=== PATIENT | male | born 1965 | race Caucasian/White ===

== ENCOUNTER → 2016-04-27 10:19 | Outpatient (CLI) | payer OTHER ==
[2016-03-11 00:50] VITALS: BMI 26.1
[~2016-04-27 10:19] MED LIST: CENTRUM COMPLE1 EACH PO; FLUTICASONE PRO16 GM NASAL; LEVAQUIN250 MG PO; LIPITOR20 MG PO; MEDROL DOSE PACK4 MG PO; PRILOSEC OTC PO; PRINIVIL20 MG PO; ZYRTEC10 MG PO
== END | disposition home or self-care (01) ==
LOC: D.US 10:19
DX: E04.1 Nontoxic single thyroid nodule (principal)

== ENCOUNTER 2017-03-25 07:23 | Day surgery (SDC) | payer OTHER ==
[~2017-03-25] VITALS: Ht 177.8 cm; Wt 102.3 kg
[2017-03-25 08:08] LABS: EOSINOPHILS 5.4 % (0-7); HEMATOCRIT 44.9 % (42.0-54.0); HEMOGLOBIN 15.4 g/dL (13.5-17.5); IMMATURE GRANULOCYTES 0.8 % (0-5); LYMPHOCYTES 33.8 % (15-50); MCH 31.3 pg (26.0-34.0); MCHC 34.3 g/dL (31.0-37.0); MCV 91.3 fL (80.0-100.0); MEAN PLATELET VOLUME 10.5 fL (7.4-10.4); MONOCYTES 13.2 % (2-11); NEUTROPHILS 45.8 % (40-80); PLATELET COUNT 222 10x3/uL (130-400); RBC 4.92 10x6/uL (4.20-6.10); RDW 12.7 % (11.5-14.5); WBC 4.9 10x3/uL (4.8-10.8)
[2017-03-25 08:16] LABS: APTT 28.8 SECONDS (22.8-39.4); INR 0.91 (0.85-1.17); PROTIME 11.9 SECONDS (11.6-15.0)
[2017-03-25] MEDS ORDERED: NORVASC2.5 MG PO (08:36)
[2017-03-25] MEDS ORDERED: CIALIS5 MG PO (08:36)
[2017-03-25 08:44] VITALS: BP 131/99; BMI 31.6
[2017-03-25 09:46] LABS: CALC OSMOLALITY 266 mosm/kg (275-300); CALCIUM 8.8 mg/dL (8.5-10.1); CHLORIDE - SERUM 100 mmol/L (98-107); GLUCOSE 127 mg/dL (74-106); POTASSIUM - SERUM 4.3 mmol/L (3.5-5.1); SODIUM 132 mmol/L (136-145); UREA NITROGEN 13 mg/dL (7-18); eGFR NON AFRICAN AMERICAN 83 mL/min (90-120)
--- NOTE | 2017-03-25 15:32 | NUR ---
FRANCISCO RELIEVED DOMINIQUE. DINH RELIEVED FRANCISCO AT 8937
--- NOTE | 2017-03-25 16:56 | HP ---
PATIENT: GAY ROWLEY MEDICAL RECORD: [id number] ACCOUNT: [id number] LOCATION:D.MS [facility]ino[address]osa2203 : 63 ADMISSION DATE: 03/25/17 HISTORY AND PHYSICAL EXAMINATION HISTORY OF PRESENT ILLNESS: Mr. Rowley is a 51-year-old male with a right thyroid nodule that has been identified previously, but he was undergoing treatment for prostate cancer at that time, also that is being addressed now. He is being admitted for right thyroid lobectomy and possible total thyroidectomy. PAST MEDICAL HISTORY: Includes hypertension and prostate cancer. PAST SURGICAL HISTORY: Includes lung excision for benign nodule and prostatectomy in 2017. CURRENT MEDICATIONS: Tadalafil, atorvastatin, amlodipine, Prilosec, and Zyrtec. ALLERGIES: MORPHINE, BACTRIM, AND NITROFURANTOIN. PHYSICAL EXAMINATION: GENERAL: He is healthy appearing. FACE: Normal, symmetric, no lesions. EYES: Sclerae and conjunctivae are normal. EARS: Canals and TMs are normal. NOSE: No masses, polyps, or drainage. ORAL CAVITY AND OROPHARYNX: Tongue protrudes in midline. Palate and pharynx is normal. NECK: He has a palpable right thyroid nodule. CHEST: Clear. CARDIOVASCULAR: Regular rate and rhythm, no murmur. EXTREMITIES: Normal. IMPRESSION: Right dominant thyroid nodule. PLAN: Right thyroid lobectomy, possible total thyroidectomy. TRANSINT:[id number] Voice Confirmation ID: [id number] DOCUMENT ID: [id number] KINGA MTZ MD at 1656 CC: [id number] DICTATION DATE: 03/21/17 151 CARRY ALL DRIVER: 03/21/17 1602 ADM IN [facility] [id number] [place] [id number]
--- NOTE | 2017-03-25 17:08 | NUR ---
CONSULTED DR OWEN REGARDING ELEVATED BLOOD PRESSURE. GIVEN VERBAL ORDERS TO GIVE LABETALOL 10MG IN PACU NOW. WILL CONTINUE TO MONITOR. MAY REPEAT X1 IN PACU.
--- NOTE | 2017-03-25 17:46 | NUR ---
PT ADMITTED TO FLOOR FROM RECOVERY ROOM. ASSESSMENT COMPLETE AT THIS TIME.
[2017-03-25 17:47] VITALS: BP 150/96
[2017-03-25 17:52] VITALS: Ht 177.8 cm; Wt 102.3 kg
[2017-03-25 20:00] VITALS: BP 137/54
--- NOTE | 2017-03-25 21:40 | NUR ---
PATIENT REQUESTING PAIN MEDICATION. NOT TIME PER Q6HP. PAGED .
--- NOTE | 2017-03-26 02:13 | NUR ---
PATIENT DENIES WEARING OXYGEN AT HOME. PRE-OP V/S PER FLOWSHEET SAY OXYGEN SATURATION 94%. PATIENT IS SITTING UP IN BED WATCHING TV. HE IS REQUESTING AN ICE CREAM. HE IS ALERT AND ORIENTED. CHECKED OXYGEN SATURATION 92-94% ON 2L/MIN. TURNED OXYGEN OFF. WILL CONTINUE TO MONITOR. TOLD PATIENT TO NOTIFY ME IF HE STARTS TO FEEL SHORT OF BREATH. HE VERBALIZED UNDERSTANDING AND AGREED. BROUGHT HIM AN ICE CREAM.
--- NOTE | 2017-03-26 02:20 | NUR ---
OXYGEN SATURATION 89-92% ON ROOM AIR. PUT OXYGEN BACK ON PATIENT AT 1L/MIN. TOLD PATIENT TO NOTIFY ME IF HE STARTS FEELING SHORT OF BREATH. HE VERBALIZED UNDERSTANDING AND AGREED.
[2017-03-26 04:00] VITALS: BP 134/86
[2017-03-26 07:10] VITALS: BP 127/75
--- NOTE | 2017-03-26 08:32 | OP ---
PATIENT NAME: GAY ROWLEY MEDICAL RECORD: [id number] :61 LOCATION:D.MS Hinojosa2203 ADMISSION DATE:03/25/17 SURGEON: KINGA MTZ MD DATE OF OPERATION: 03/25/2017 PREOPERATIVE DIAGNOSIS: Right thyroid nodule. POSTOPERATIVE DIAGNOSIS: Right thyroid nodule. PROCEDURE: Right thyroid lobectomy. SURGEON: Kinga Mtz MD ANESTHESIA: General orotracheal. BLOOD LOSS: Less than 20 cc. SPECIMENS: Right thyroid lobe. Frozen section diagnosis benign thyroid adenoma, no evidence of malignancy. DRAINS: A single JUSTIN drain through a separate stab incision inferior to the wound. COMPLICATIONS: None. DISPOSITION: Recovery stable. DESCRIPTION OF PROCEDURE: He was brought to the operating room and placed in supine position, sedated and intubated by anesthesia. The eyes were taped. He was positioned for thyroidectomy. The skin was cleaned with alcohol and injected with 1 cc of 1% lidocaine with 1:100,000 epinephrine for the incision. He was prepped and draped in usual sterile fashion. A horizontal skin incision was made with a 15 blade. This was taken down through the platysma. The fascia was exposed, flaps were dissected inferiorly and superiorly and 4 separate 2-0 silk stick ties were used for retraction sutures. The strap muscles were divided in the midline down to and exposing the thyroid. The thyroid was palpated, on the left side was normal. On the right side had a thyroid nodule, fairly lateral and posterior. Army-Pinch retractors were used to expose the gland, was dissected out inferiorly, laterally very large thyroid vein was taken down, generally had very large venous vasculature to the thyroid bed. The dissected inferiorly first, some small vessels were clipped with a clip application operations engineer and the gland was dissected out. The recurrent laryngeal nerve was identified and followed up superiorly just a little bit, but then the superior lobe was dissected out bluntly and then with tonsil clamp and clip application operations engineer and bipolar cautery were used to control cautery until a right angle clamp was used to tie off the vasculature with a 2-0 silk tie and once the superior lobe was pulled down, then the gland could be rotated medially. The nodule was the most posterior portion of the thyroid gland. Parathyroid gland was dissected off superiorly and dissected away from the gland. The gland was rotated medially, the recurrently laryngeal nerve was followed superiorly all the way behind the gland and the gland was gently rolled off medially, taking down small portions of Andrade's ligament with a Agapito forceps and bipolar cautery until the thyroid was completely removed and just attached to the isthmus. Clamp was placed across, it was divided with a knife. The specimen was sent for path. The nodule was about 2 cm in size and just really barely attached to the rest of the OPERATIVE REPORT [id number] GAY ROWLEY thyroid, a nice clean capsule with no adhesion to surrounding tissue. The isthmus was tied off with 2-0 silk stick tie. Then the vascular area at the Andrade's ligament was inspected. It was really clean, the area was irrigated. Some Surgicel was placed in the thyroid bed. His head was lifted backup for closing the wound. A 15-Chinese JUSTIN drain was placed with a trocar in the midline, inferior to the wound. The platysmal layer was closed with interrupted 4-0 Vicryl and the skin was closed with running 6-0 subcuticular Prolene. Steri-Strips and Mastisol were applied. He was awakened, extubated, and transported to recovery in good condition. No complications. TRANSINT:[id number] Voice Confirmation ID: [id number] DOCUMENT ID: [id number] KINGA MTZ MD at 0832 CC: [id number] DICTATION DATE: 03/25/17 1635 INDUSTRIAL AUTOMATION SPECIALIST: 03/25/17 1821 ADM IN [facility] [address] [place] [address]
--- NOTE | 2017-03-26 10:14 | NUR ---
L FOREARM IV D/C'D AT THIS TIME, CATHETER INTACT, BLEED CONTROL, BANDAGE APPLIED.
[2017-03-26] MEDS ORDERED: HYDROCODON-ACE1 EAC7 PO (10:19)
--- NOTE | 2017-03-26 10:29 | NUR ---
DISCHARGE INSTRUCTIONS GIVEN TO PT, VERBALIZED UNDERSTANDING AND SIGNED. WRITTEN RX OF NORCO GIVEN TO PT. ALL QUESTIONS ANSWERED. DISCHARGED FROM THE FLOOR.
== END 2017-03-26 12:13 | disposition home or self-care (01) ==
LOC: D.SDCHOLD 07:23 → D.OPS 07:23 → D.MS 07:23 → D.SDCHOLD 10:40 → EDSTATUS 10:40 → D.MS 16:51 → D.SDCHOLD 16:51 → D.OPS 03-26 12:13 → D.MS 03-26 12:13
PROVIDERS: Anesthesiology; Otolaryngology
PROC: 0GTH0ZZ Resection of Right Thyroid Gland Lobe, Open Approach (ICD-10-PCS; principal; 2017-03-25 09:45)
DX: E04.1 Nontoxic single thyroid nodule (principal); I10 Essential (primary) hypertension

== ENCOUNTER → 2018-08-04 08:39 | Outpatient (CLI) | payer OTHER ==
[2017-03-25 17:52] VITALS: BMI 32.3
[~2018-08-04 08:39] MED LIST changes: +CIALIS5 MG PO; +HYDROCODON-ACE1 EAC7 PO; +NORVASC2.5 MG PO
== END | disposition home or self-care (01) ==
LOC: D.CT 07-30 09:00
PROVIDERS: ATTEND Family Medicine
DX: C7A.090 Malignant carcinoid tumor of the bronchus and lung (principal)

== ENCOUNTER 2019-03-10 09:23 | Inpatient (IN) | payer OTHER ==
[~2019-03-10] VITALS: Ht 177.8 cm; Wt 102.1 kg
--- NOTE | ~2019-03-10 | OP ---
PATIENT NAME: GAY ROWLEY MEDICAL RECORD: [id number] :61 LOCATION:D.MS Hinojosa2209 ADMISSION DATE:03/10/19 SURGEON: DONALDO MORALES MD DATE OF OPERATION: 03/10/2019 PREOPERATIVE DIAGNOSIS: Iatrogenic perforation of the cecum with a pneumoperitoneum. POSTOPERATIVE DIAGNOSES: Iatrogenic perforation of the cecum with a pneumoperitoneum with no apparent spillage of any feculent material. I noted no foul smell and no turbid fluid. PROCEDURE: Hand-assisted laparoscopic surgery -- right hemicolectomy. SURGEON: Donaldo Morales MD TAX MAP TECHNICIAN: None. BLOOD LOSS: 100 cc. ANESTHESIA: General. COMPLICATIONS: None. The risks, possible complications and alternatives to the procedure were explained to the patient. He elects to proceed. The discussion specifically included, but was not limited to, bleeding requiring emergency reoperation and infection, intestinal injury, anastomotic leakage as well as colostomy formation. The patient had undergone endoscopic resection of a polypoid mass. It was centrally umbilicated and was fairly firm. I was not sure whether this represented a polyp or a malignancy within a polyp. Anyhow, the patient underwent an endoscopic mucosal resection of this lesion. I felt that either there had been a full thickness injury to the cecum or a near full thickness injury. I placed four endoscopic clips across the area of concern. I removed the polypoid mass. It was somewhat firm and is worrisome for a malignancy and therefore could not be treated with an excisional biopsy performed endoscopically. A subsequent upright chest x-ray revealed a significant amount of free intraperitoneal air. I explained this to the patient and his . We proceeded to the operating room emergently. The abdomen was sterilely prepped and draped. A small skin indy was accomplished in the left upper quadrant. A Veress needle was inserted through the skin indy into the peritoneal cavity. CO2 insufflation was begun. Once a sufficient pneumoperitoneum had been achieved, a 5-mm trocar was inserted in the epigastrium. Under direct internal vision utilizing television camera, a 5-mm trocar was inserted through an incision at the umbilicus. Another 5-mm trocar was inserted through an incision in the suprapubic area. During insertion of the Veress needle and all trocars, there appeared to have been no injury to the bowels, any intraperitoneal or retroperitoneal structures. An abdominal survey was undertaken. I grasped the right colon. I pulled it medially. I then incised along the right white line of Toldt with the OPERATIVE REPORT [id number] GAY ROWLEY laparoscopic EnSeal device. I then took down the retroperitoneal attachments to the hepatic flexure. I chose an area for the Gelport insertion. This was between the anterior superior iliac spine and the right costal margin. A transverse incision was accomplished. I dissected down through skin and subcutaneous tissues. I incised the external oblique aponeurosis and muscles along the direction of their fibers and them. At no time was there any division of musculature as I performed a muscle technique. I did this with the internal oblique as well as with the transverse abdominis muscles. Stay sutures of #1 Vicryl were placed on either side of the peritoneum, which was entered sharply. An Andrés device was placed within the abdomen. A Gelport was placed on top of this. Through the Gelport, I performed some additional finger dissection of the right side of the colon. I then removed the Gelport top. I exteriorized the right colon. There was no foul smell. When I exteriorized the right colon, the cecum was inflated. I squeezed the cecum and there was no leakage of fluid and no leakage of air, so I believe that there may have been some leakage of air during the colonoscopy until I was able to place a row of clips and that the row of clips made the injury not only hemostatic, but also prevented further leakage of any air into the peritoneal cavity. I chose the proximal extent of my resection to be just proximal to the ileocecal valve. A window was created in the mesentery of the small bowel with a LUIS-75 stapler. The distal extent of my resection was just proximal to the middle colic artery. A window was created in the mesentery of the colon here and I stapled across the colon with a LUIS-75 stapler. Some of the omentum was taken down with the Super Jaw EnSeal device. I then divided the mesentery between my proximal extent of the resection and my distal extent of the resection with the Super Jaw EnSeal device. Specimen was then sent to pathology. The ileum and the transverse colon were then placed into apposition side by side suturing the antimesenteric borders together. An incision was accomplished at the end of the ileum, incision was accomplished at the transverse colon. Anvils of the LUIS-75 stapler were advanced and then fired. The resulting intracolonic defect was closed with a single firing of a TA 60 stapler. I then returned the anastomosis to the peritoneal cavity. I irrigated and aspirated. There was no bleeding. The transverse abdominis muscle was closed with running #1 Vicryl. The internal oblique muscle and aponeurosis were closed with running #1 Vicryls. The external oblique aponeurosis was closed with running #1 Vicryls. The subdermis was approximated with interrupted 3-0 Vicryls. The skin was approximated with a running intracuticular 3-0 Vicryl. At the skin incision at the umbilicus where the 5-mm trocar had been, the skin was closed with interrupted 4-0 Vicryl Rapide sutures. The other 2 trocar sites were closed with interrupted intracuticular 3-0 Vicryls. Benzoin and Steri-Strips were applied. The patient was then extubated and conveyed to post-anesthesia care unit where OPERATIVE REPORT [id number] GAY ROWLEY he was in stable condition. TRANSINT:[id number] Voice Confirmation ID: [id number] DOCUMENT ID: [id number] DONALDO MORALES MD CC: [id number] DICTATION DATE: 03/11/191829 WATCH COMMANDER: 03/12/19 0258 ADM IN [facility] [address] [place] [address]
[2019-03-10 10:06] LABS: HEMATOCRIT 47.6 % (42.0-54.0); HEMOGLOBIN 16.5 g/dL (13.5-17.5); MCH 32.6 pg (26.0-34.0); MCHC 34.7 g/dL (31.0-37.0); MCV 94.1 fL (80.0-100.0); MEAN PLATELET VOLUME 10.8 fL (7.4-10.4); RBC 5.06 10x6/uL (4.20-6.10); WBC 6.9 10x3/uL (4.8-10.8)
[2019-03-10] MEDS ORDERED: LEVO-T88 MCG PO (10:42)
[2019-03-10] MEDS ORDERED: CRESTOR10 MG PO (10:44)
[2019-03-10] MEDS ORDERED: CO Q-10200 MG PO (10:45)
[2019-03-10 10:46] VITALS: BMI 32.3
--- NOTE | 2019-03-10 13:20 | NUR ---
DR MORALES STATES AT THIS TIME THAT PT WILL RETURN TO OR FOR R LAPAROSCOPIC COLECTOMY. CONSENTS OBTAINED AT THIS TIME AND PLACED IN CHART. WILL CONTINUE TO MONITOR PT. VITALS STABLE AT THIS TIME.
--- NOTE | 2019-03-10 13:33 | NUR ---
PT EN ROUTE TO HOLDING AREA AT THIS TIME, VITAL SIGNS STABLE, NAD NOTED.
[2019-03-10 14:39] LABS: BASOPHILS 0.9 % (0-2); EOSINOPHILS 2.6 % (0-7); HEMATOCRIT 46.5 % (42.0-54.0); HEMOGLOBIN 15.8 g/dL (13.5-17.5); IMMATURE GRANULOCYTES 0.3 % (0-5); LYMPHOCYTES 18.4 % (15-50); MCH 31.9 pg (26.0-34.0); MCV 93.8 fL (80.0-100.0); MEAN PLATELET VOLUME 10.9 fL (7.4-10.4); MONOCYTES 8.9 % (2-11); NEUTROPHILS 68.9 % (40-80); PLATELET COUNT 269 10x3/uL (130-400); RBC 4.96 10x6/uL (4.20-6.10)
[2019-03-10 14:47] LABS: WBC 9.4 10x3/uL (4.8-10.8)
[2019-03-10 15:47] LABS: CALC OSMOLALITY 277 mosm/kg (275-300); CARBON DIOXIDE 29.9 mmol/L (21.0-32.0); CHLORIDE - SERUM 102 mmol/L (98-107); GLUCOSE 112 mg/dL (74-106); POTASSIUM - SERUM 4.4 mmol/L (3.5-5.1); SODIUM 139 mmol/L (136-145); UREA NITROGEN 10 mg/dL (7-18); eGFR NON AFRICAN AMERICAN 82 mL/min (90-120)
[2019-03-10 18:06] VITALS: BP 143/88
[2019-03-10 19:30] VITALS: BP 143/85
--- NOTE | 2019-03-10 19:37 | OP ---
PATIENT NAME: GAY ROWLEY MEDICAL RECORD: [id number] :61 LOCATION:D.MS Lorenz[facility].2209 ADMISSION DATE: SURGEON: DONALDO MORALES MD DATE OF OPERATION: 03/10/2019 PREOPERATIVE DIAGNOSIS: Semi-pedunculated cecal polypoid mass. POSTOPERATIVE DIAGNOSES: 1. 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 2. Hot biopsy forceps polypectomy times 1 from the superior lip of the ileocecal valve. PROCEDURES: 1. Total colonoscopy to cecum. 2. Endoscopic mucosal resection of a semi-pedunculated polypoid mass of the cecum. 3. Injection of Eleview. 4. Placement of 4 endoscopic clips in a row after the polypoid mass was removed. 5. Tattooing in a triangular fashion at 3 points around where the polypoid mass had been removed. 6. Hot biopsy forceps polypectomy times 1. COMPLICATIONS: Pneumoperitoneum. The risks, possible complications and alternatives to the procedure were explained to the patient. He elects to proceed. Discussion specifically included, but was not limited to, bleeding requiring emergency reoperation, infection, endoscopic perforation and possible need for additional operative procedure. OPERATIVE COURSE: The patient was conveyed to endoscopy suite electively on 03/10/2019. IV sedation was induced by the anesthesia staff. The patient was placed in the Patel position. A digital rectal examination was performed. The post-prostatectomy changes were noted. A colonoscope was inserted through the anus. It was easily advanced to the cecum. The polypoid mass was identified. It appeared that it had a wide stalk and I would consider this to be a semi-pedunculated mass. I advanced a sclerotherapy needle. I then injected epinephrine into the stalk for post-procedural hemostasis. Utilizing the sclerotherapy needle, I injected Eleview on one side of the polypoid mass and then on the other side. I felt that we had a pretty good lift after the Eleview. I advanced an endoscopic snare. I then used the coagulation setting and then the cut setting to remove the polypoid mass. I could see that this was a pretty deep cut. There was a tiny bit of polypoid tissue remaining and this was ablated utilizing the argon plasma k 9 police officer. I then injected Cheyanne ink 1 cc at 3 points around where the polypoid mass had been removed. This was a submucosal injection in case the area needs to be resected in the future. I then wanted to reinforce the area where the polypoid mass had been removed. This was reinforced with 4 endoscopic clips in a row. There was no bleeding. I withdrew into the ileocecal valve. It appeared that on the superior lip of the ileocecal valve, there was an irregularity and this may represent a polyp as well. This was removed utilizing the hot biopsy forceps polypectomy technique. OPERATIVE REPORT [id number] GAY ROWLEY I then grasped the polypoid mass. I withdrew it out through the anus. A post-procedural upright chest x-ray revealed a pneumoperitoneum and the patient is having pain in the right lower quadrant. We discussed the risks, possible complications and alternatives to hand-assisted laparoscopic right colectomy. We are taking him to the operating room emergently. The fact that the removal of the polypoid mass causes a full thickness injury, makes it worrisome for an invasive malignancy. I am going to plan on performing a cancer operation on this patient. TRANSINT:[id number] Voice Confirmation ID: [id number] DOCUMENT ID: [id number] DONALDO MORALES MD at 1937 CC: ROXANNA TORRES MD, ,KEYON York, LAWRENCE SOSA and [id number] DICTATION DATE: 03/10/19 1330 NAPPER RUNNER: 03/10/19 1543 REG [facility] [address] [place] [address]
[2019-03-11 00:30] VITALS: BP 111/59
[2019-03-11 05:00] VITALS: BP 101/65
[2019-03-11 05:04] LABS: BASOPHILS 0.1 % (0-2); EOSINOPHILS 0 % (0-7); HEMATOCRIT 40.7 % (42.0-54.0); HEMOGLOBIN 13.7 g/dL (13.5-17.5); IMMATURE GRANULOCYTES 0.4 % (0-5); LYMPHOCYTES 9.7 % (15-50); MCH 31.9 pg (26.0-34.0); MCHC 33.7 g/dL (31.0-37.0); MCV 94.7 fL (80.0-100.0); MEAN PLATELET VOLUME 10.5 fL (7.4-10.4); MONOCYTES 9.3 % (2-11); NEUTROPHILS 80.5 % (40-80); PLATELET COUNT 222 10x3/uL (130-400)
[2019-03-11 05:09] LABS: ALBUMIN 3.1 g/dL (3.4-5.0); ANION GAP 15.5 mmol/L (8-16); BILIRUBIN - TOTAL 0.45 mg/dL (0.2-1.3); CARBON DIOXIDE 24.6 mmol/L (21.0-32.0); CREATININE - SERUM 1.1 mg/dL (0.6-1.3); MAGNESIUM - SERUM 1.6 mg/dL (1.8-2.4); PHOSPHOROUS 3.2 mg/dL (2.5-4.9); POTASSIUM - SERUM 4.1 mmol/L (3.5-5.1); PROTEIN - SERUM 6.2 g/dL (6.4-8.2)
[2019-03-11 08:11] VITALS: BP 103/70
[2019-03-11 09:33] VITALS: BMI 32.2
[2019-03-11 12:30] VITALS: BP 109/65
[2019-03-11 17:10] VITALS: BP 118/70
[2019-03-11 21:57] VITALS: BP 128/78
--- NOTE | 2019-03-12 02:18 | NUR ---
alert and orented able to voice needs and wants to staff. on room air, iv to right hand. with ns at 100ml/hr. lap cites intact with no bleeding noted. from manuela colectom . folly cath in place and patblayne.epadrial in place and rafa.
[2019-03-12 02:42] VITALS: BP 134/80
--- NOTE | 2019-03-12 08:15 | NUR ---
ALERT AND ORIENTED. LUNGS CLEAR BILATERALLY. HEART SOUNDS S1 AND S2 HEARD IN ALL DUARTE. BOWEL SOUNDS ACTIVE X 4. IV TO RIGHT HAND PATENT WITHOUT REDNESS. LAP SITES X 4 C/D/I. FENTANYL EPIDURAL TO BACK INTACT WITHOUT REDNESS. PATIENT STATES DOES NOT FEEL LIKE EPIDURAL WORKING. ANESTHESIA IN ROOM WORKING WITH EPIDURAL. SHI IN PLACE AND PATENT. DENIES NEEDS. BED LOW. CALL JIMENEZ AND PERSONAL ITEMS IN REACH. WILL CONTINUE TO MONITOR.
[2019-03-12 09:32] VITALS: BP 134/76
--- NOTE | 2019-03-12 12:39 | NUR ---
PATIENT REQUESTING TO TALK TO DR OWEN. STATES EPIDURAL NOT WORKING. DR OWEN PAGED.
--- NOTE | 2019-03-12 12:40 | NUR ---
DR OWEN STATES SOMEONE WILL BE UP TO TALK TO PATIENT IN 15 MINUTES.
[2019-03-12 14:00] VITALS: Ht 177.8 cm; Wt 102.1 kg
[2019-03-12 14:02] VITALS: BP 164/95
--- NOTE | 2019-03-12 15:32 | NUR ---
RESTING IN BED. DENIES NEEDS. WILL CONTINUE TO MONITOR.
--- NOTE | 2019-03-12 16:51 | NUR ---
RESTING IN BED. DENIES NEEDS. WILL CONTINUE TO MONITOR.
--- NOTE | 2019-03-12 18:05 | NUR ---
RESTING IN BED. AT BEDSIDE. DENIES NEEDS. IV TO RIGHT HAND PATENT WITHOUT REDNESS. BED LOW. CALL JIMENEZ AND PERSONAL ITEMS IN REACH.
[2019-03-12 18:48] VITALS: BP 149/72
[2019-03-12 20:00] VITALS: BP 152/83
[2019-03-13] VITALS: BP 131/80
--- NOTE | 2019-03-13 01:05 | NUR ---
D/C FOLLY CATH WITH 550CC AURY URIN IN BAG. DILADID INSTANT PRINTER OPERATOR D/C 'D WASTED 1MG USED 10 THIS SHIFT. PATIENT SAT UP ON SIDE OF BED FOR SHORT TIME. NO NEEDS AT THIS TIME.
[2019-03-13 04:00] VITALS: BP 113/79
--- NOTE | 2019-03-13 07:00 | NUR ---
PT AWAKE AND ALERT SITTING UP IN CHAIR. PT ALERT AND ORIENTATED. NO ACUTE S/S OF DISTRESS. NO C/O AT THIS TIME. THE FOUR SITES FROM HIS SURGERY C/D/I. IV IN RIGHT HAND, NORMAL SALINE @ 100 ML/HR. NO REDNESS OR SWELLING NOTED AT IV SITE. CALL LIGHT IN PLACE. WILL CONTINUE TO MONITOR.
[2019-03-13 07:11] LABS: CALC OSMOLALITY 275 mosm/kg (275-300); CALCIUM 8.2 mg/dL (8.5-10.1); CARBON DIOXIDE 28.9 mmol/L (21.0-32.0); CHLORIDE - SERUM 103 mmol/L (98-107); CREATININE - SERUM 0.8 mg/dL (0.6-1.3); GLUCOSE 122 mg/dL (74-106); POTASSIUM - SERUM 3.6 mmol/L (3.5-5.1); SODIUM 138 mmol/L (136-145); UREA NITROGEN 10 mg/dL (7-18); eGFR NON AFRICAN AMERICAN > 90 mL/min (90-120)
--- NOTE | 2019-03-13 07:39 | CN ---
PATIENT NAME:GAY ROWLEY MEDICAL RECORD: [id number] : 61 LOCATION:D.MS Hinojosa2209 ADMIT DATE: 03/10/19 ACCOUNT: [id number] CONSULTING PHYSICIAN: KEYON ESQUEDA MD REFERRING PHYSICIAN: DONALDO MORALES MD DATE OF CONSULTATION: 03/12/2019 MEDICAL CONSULTATION REASON FOR CONSULTATION: Medical consultation for management postoperative. HISTORY OF PRESENT ILLNESS: The patient is a 53-year-old male who underwent a HALS right hemicolectomy after a polypectomy in a slight pneumoperitoneum, but apparently the specimen had a very deep stop. The patient has been admitted now because he is having some mild postoperative abdominal pain. He denies nausea. He has not had any flatus as yet. PAST MEDICAL HISTORY: He has had cancer of the prostate, post-prostatectomy. He had a carcinoid tumor removed from his right lower lobe remotely, hyperlipidemia, GERD, hypothyroidism. PAST SURGICAL HISTORY: Right lower lobectomy, retropubic nerve sparing prostatectomy, recent HALS right hemicolectomy. ALLERGIES: SULFA. MEDICATIONS: Levothyroxine 88 mcg p.o. q.a.m. a.c., amlodipine 2.5 mg p.o. daily, rosuvastatin 10 mg at bedtime, Claritin 10 mg daily p.r.n., multivitamin 1 daily, Prilosec 10 mg p.o. daily. FAMILY HISTORY: Includes heart disease in his father and mother. SOCIAL HISTORY: He is . He smoked last 30 years. Minimal alcohol: REVIEW OF SYSTEMS: CONSTITUTIONAL: No fever or fatigue. HEENT: No recent visual change. RESPIRATORY: No short of breath. CARDIAC: No chest pain, claudication, or edema. GASTROINTESTINAL: He has had some mild nausea, abdominal pain. Postprocedure, he has had no flatus as yet. ENDOCRINE: No polyuria, polydipsia, or heat or cold intolerance. NEUROLOGIC: No history of stroke, TIA, or vascular headaches. INTEGUMENT: No rash or itching. PSYCHIATRIC: Denies depressed mood. PHYSICAL EXAMINATION: VITAL SIGNS: Temperature 99 degrees Fahrenheit orally, blood pressure 120/78, sats 93% on room air, respiratory rate 16. GENERAL: Alert and oriented. EYES: Clear. NECK: Supple. CHEST: Faint wheezes, without rales. HEART: Regular rate and rhythm. ABDOMEN: Soft with minimal tenderness in the right lower quadrant and CONSULT REPORT [id number] GAY ROWLEY hypoactive bowel sounds. EXTREMITIES: No edema. NEUROLOGICAL: Grossly intact. Gait was not tested. LABORATORY DATA: Shows 13,000 white count with a left shift, H&H is 13.7 and 40.7 respectively. Chemistry is unremarkable. Glucose 129 nonfasting, on IV fluid. CEA is pending. DIAGNOSTIC DATA: Chest x-ray was unremarkable. Path is pending. ASSESSMENT: 1. Leukocytosis post-HALS right hemicolectomy. 2. History of prostate cancer. 3. History of carcinoid tumor of the lung. 4. Hypertension. 5. Hyperlipidemia. 6. Hypothyroidism. PLAN: Once he resumes gut function, we will resume his oral home meds. We will follow with you medically. TRANSINT:[id number] Voice Confirmation ID: [id number] DOCUMENT ID: [id number] KEYON ESQUEDA MD at 0739 CC: [id number] DICTATION DATE: 03/12/19 1337 EMERGENCY ROOM PHYSICIAN: 03/12/19 1419 ADM IN [facility] [address] [place] [address]
[2019-03-13 08:12] VITALS: BP 137/93
[2019-03-13 08:37] LABS: BASOPHILS 0.3 % (0-2); EOSINOPHILS 0.6 % (0-7); HEMATOCRIT 37.5 % (42.0-54.0); HEMOGLOBIN 12.5 g/dL (13.5-17.5); IMMATURE GRANULOCYTES 0.4 % (0-5); LYMPHOCYTES 13.6 % (15-50); MCH 31.3 pg (26.0-34.0); MCHC 33.3 g/dL (31.0-37.0); MONOCYTES 12.9 % (2-11); NEUTROPHILS 72.2 % (40-80); PLATELET COUNT 192 10x3/uL (130-400); RBC 3.99 10x6/uL (4.20-6.10); RDW 12.6 % (11.5-14.5); WBC 11.5 10x3/uL (4.8-10.8)
--- NOTE | 2019-03-13 09:14 | NUR ---
PT HAD A MEDIUM BOWEL MOVEMENT. PT IS SALINE LOCKED BECUASE NORMAL SALINE HAS BEEN DISCONTINUED.
--- NOTE | 2019-03-13 09:43 | NUR ---
PT AWAKE AND SITTING UP IN THE CHAIR. ALERT AND ORIENTATED. NO ACUTE S/S OF DISTRESS. NO C/O AT THIS TIME. FOUR SITES FROM SURGERY CLEAN, DRY, AND INTACT. IV IN RIGHT HAND @ 100 ML/HR NORMAL SALINE NO REDNESS OR SWELLING NOTIED. CALL LIGHT IN PLACE. WILL CONTIUE TO MONITOR.
--- NOTE | 2019-03-13 09:49 | NUR ---
PT AWAKE AND SITTING IN CHAIR. PT IS ALERT AND ORIENTATED. NO ACUTE S/S OF DISTRESS. NO C/O AT THIS TIME. FOUR SITES FROM SURGERY C/D/I. IV IN RIGHT HAND @ 100 ML/HR NORMAL SALINE. CALL LIGHT IN PLACE. WILL CONITUE TO MONITOR.
[2019-03-13 13:21] VITALS: BP 138/92
[2019-03-13] MEDS ORDERED: PROTONIX40 MG PO (17:19)
[2019-03-13] MEDS ORDERED: HYDROCODON-ACE1 EAC7 PO (17:21)
[2019-03-13] MEDS ORDERED: FLAGYL500 MG PO (17:21)
[2019-03-13] MEDS ORDERED: CIPRO500 MG PO (17:21)
--- NOTE | 2019-03-14 18:47 | DS ---
PATIENT:GAY ROWLEY :61 MEDICAL RECORD: [id number] DISCHARGE SUMMARY ADMISSION DATE: 03/10/19 DISCHARGE DATE: 03/13/19 PRINCIPAL DIAGNOSES: 1. Cecal cancer at least a site of in situ adenocarcinoma. 2. Hyperplastic polyp of the ileocecal valve. 3. Iatrogenic bowel perforation. 4. Anemia, not due to blood loss. PROCEDURES: 1. Hand-assisted laparoscopic right hemicolectomy. 2. Total colonoscopy to cecum, endoscopic mucosal resection polypectomy, hot biopsy forceps polypectomy times 1. Endoscopic clips times 4 as well as endoscopic tattooing. HOSPITAL COURSE: The patient underwent the above endoscopic procedure. At the time of endoscopy, I was concerned about the depth that I had to go to in order to remove this polypoid mass. I placed a row of endoscopic clips. A subsequent chest x-ray revealed free peritoneal air. The patient then underwent emergent hand-assisted laparoscopic right hemicolectomy. At the time that I remove the colon, the cecum was actually airtight. I noted no evidence of feculent material within the abdomen. No evidence of leakage from the colon. My fear is that the perforation was probably pretty small, but a significant amount of air probably escaped through it into the peritoneal cavity due to insufflation from the colonoscope. Once I laid down my endoscopic clips in a row that caused the colon to become airtight and watertight. The patient's pain was controlled postoperatively with an epidural pain pump. The pain pump was removed. He was transitioned to IV narcotic analgesia and then oral narcotic analgesia. Dr. Jeffries saw the patient in consultation. Dr. Mendoza saw the patient in consultation as well. The patient was dismissed home with [facility] as well as [place]. He is to follow up with me in my office in 2-3 weeks. TRANSINT:[id number] Voice Confirmation ID: [id number] DOCUMENT ID: [id number] DONALDO MORALES MD at 1845 CC: KEYON JEFFRIES ROBERT T [id number] DICTATION DATE: 03/13/192132 SOLAR PHOTOVOLTAIC INSTALLER: 03/14/19 0914 DIS IN 03/13/19 [facility] [address] [facility], [facility]
== END 2019-03-13 18:01 | disposition home or self-care (01) | DRG 909 ==
LOC: D.OPS 09:23 → D.MS 12:52 → D.OPS 17:35 → D.MS 17:35
PROVIDERS: Anesthesiology; Family Medicine; ADMIT Surgery; ATTEND Surgery
PROC: 0DBH8ZZ Excision of Cecum, Via Natural or Artificial Opening Endoscopic (ICD-10-PCS; 2019-03-10)
PROC: 0DTF0ZZ Resection of Right Large Intestine, Open Approach (ICD-10-PCS; principal; 2019-03-10 12:00)
DX: K91.71 Accidental puncture and laceration of a digestive system organ or structure during a digestive system procedure (principal); G89.18 Other acute postprocedural pain; K63.5 Polyp of colon; D01.0 Carcinoma in situ of colon; Z85.46 Personal history of malignant neoplasm of prostate; E78.5 Hyperlipidemia, unspecified; K21.9 Gastro-esophageal reflux disease without esophagitis; E03.9 Hypothyroidism, unspecified; D72.829 Elevated white blood cell count, unspecified; I10 Essential (primary) hypertension; Z85.110 Personal history of malignant carcinoid tumor of bronchus and lung